=== PATIENT | male | born 1990 | race Caucasian/White ===

== ENCOUNTER 2020-02-28 08:30 | Day surgery (SDC) | payer SELFPAY ==
[2020-02-28] MEDS ORDERED: MORPHINE 4 MG/ML SYR ONE (09:59)
[2020-02-28] MEDS ORDERED: ONDANSETRON 4 MG/2 ML VIAL ONE ×2 (09:59→12:54)
[2020-02-28] MEDS ORDERED: NA CHLORIDE 0.9% 1,000 ML ONE (09:59)
[2020-02-28 10:09] LABS: Absolute Lymphocytes (CBC) 1.4 K/uL (0.7-4.9); Basophils % 0.2 % (0-1.3); Hematocrit 48.2 % (39.6-49.0); Lymphocytes % 7.4 % (15.3-44.8); MPV 9.9 fL (7.6-11.3); RBC Red Blood Cell Count 5.51 M/uL (4.33-5.43)
[2020-02-28 10:16] LABS: ALT/SGPT 38 U/L (12-78); AST/SGOT 19 U/L (15-37); Albumin 4.2 g/dL (3.4-5.0); Alkaline Phosphatase 135 U/L (45-117); BUN Blood Urea Nitrogen 10 mg/dL (7-18); Bicarbonate 26 mmol/L (21-32); Bilirubin Direct < 0.1 mg/dL (0-0.2); Bilirubin Total 0.5 mg/dL (0.2-1.0); Glucose Level 91 mg/dL (74-106); Lipase 55 U/L (73-393); Potassium 3.7 mmol/L (3.5-5.1); Protein, Total 8.1 g/dL (6.4-8.2); Sodium Level 140 mmol/L (136-145)
[2020-02-28 10:35] LABS: Urine Blood NEGATIVE (NEG); Urine Glucose NEGATIVE (NEG); Urine Protein TRACE (NEG); Urine pH 8.5 (5.0-7.0)
[2020-02-28 10:51] LABS: Blood Morphology Comment NOT SEEN (NOT SEEN); Platelet Estimate ADEQ; Urine White Blood Cell Casts OK
--- NOTE | 2020-02-28 10:58 | RAD REPORT ---
EXAM DESCRIPTION: CTAbdomen Pelvis W Contrast - 02/28/2020 10:29 am CLINICAL HISTORY: Abdominal pain. ABD PAIN COMPARISON: No comparisons TECHNIQUE: Biphasic CT imaging of the abdomen and pelvis was performed with 100 ml non-ionic IV cont rast. All CT scans are performed using dose optimization technique as appropriate and may include automated exposure control or mA/KV adjustment according to patient size. FINDINGS: The lung bases are clear. The liver, spleen, pancreas, adrenal glands and kidneys are within normal limits. 26 mm cyst is prese nt superior left kidney. No bowel obstruction, free air, free fluid or abscess. The appendix is dilated to 14 mm and mildly i nflamed compatible with acute appendicitis. No evidence of significant lymphadenopathy. No suspicious bony findings. IMPRESSION: Acute appendicitis.
--- NOTE | 2020-02-28 11:14 | ER ---
Nurse's Notes [facility] Name: Lincoln Falcon Age: 29 yrs Sex: Male : 1990 Arrival Date: 02/28/2020 Time: 08:34 Bed 5 Private MD: Diagnosis: Acute appendicitis;Acute appendicitis with generalized peritonitis Presentation: 02/27 08:41 Chief complaint: Patient states: abd cramping and nausea that began yesterday. ll1 Coronavirus screen: Proceed with normal triage. Patient denies a cough. Patient denies shortness of breath or difficulty breathing. Patient denies measured and/or subjective temperature greater than 100.4F prior to today's visit. Patient denies travel on a cruise ship or to a country the [facility] currently lists as an affected area. Patient denies contact with known and/or suspected case of COVID-19. Ebola Screen: Patient denies exposure to infectious person. Patient denies travel to an Ebola-affected area in the 21 days before illness onset. Initial Sepsis Screen: Does the patient meet any 2 criteria? No. Patient's initial sepsis screen is negative. Does the patient have a suspected source of infection? No. Patient's initial sepsis screen is negative. Risk Assessment: Do you want to hurt yourself or someone else? Patient reports no desire to harm self or others. Onset of symptoms was February 27, 2020. 08:41 Method Of Arrival: Ambulatory [facility] 08:41 Acuity: SHAUNA 3 ll1 Historical: - Allergies: 08:42 No Known Allergies; ll1 - Home Meds: 08:42 None [Active]; ll1 - PMHx: 08:42 None; ll1 - PSHx: 08:42 None; ll1 - Immunization history:: Adult Immunizations up to date. - Social history:: Smoking status: Patient denies any tobacco usage or history of. Screenin:10 Abuse screen: Denies threats or abuse. Nutritional screening: No deficits noted. em Tuberculosis screening: No symptoms or risk factors identified. Fall Risk None identified. Assessment: 09:09 General: Appears in no apparent distress. comfortable, Behavior is calm, cooperative, em appropriate for age, Denies fever. Pain: Complains of pain in abdomen Pain currently is 7 out of 10 on a pain scale. Quality of pain is described as crampy, Pain began 1 day ago. Neuro: Level of Consciousness is awake, alert, obeys commands, Oriented to person, place, time, situation, Appropriate for age. Cardiovascular: Capillary refill < 3 seconds Patient's skin is warm and dry. Respiratory: Airway is patent Respiratory effort is even, unlabored, Respiratory pattern is regular, symmetrical. GI: Abdomen is round non-distended, Bowel sounds present X 4 quads. Abd is soft and non tender X 4 quads. Reports nausea, Patient currently denies diarrhea, vomiting. : Urine is clear. Derm: Skin is intact, is healthy with good turgor, Skin is pink, warm \T\ dry. Musculoskeletal: Capillary refill < 3 seconds, Range of motion: intact in all extremities. 11:15 Reassessment: Dr. Villegas at bedside assessing pt and updating POC. jl7 Vital Signs: 08:41 BP 127 / 84; Pulse 75; Resp 15; Temp 99.0(TE); Pulse Ox 98% on R/A; Weight 86.18 kg; ll1 Height 5 ft. 7 in. (170.18 cm); Pain 7/10; 09:55 BP 126 / 78; Pulse 66; Resp 22; Pulse Ox 100% on R/A; Pain 6/10; em 11:38 BP 130 / 93; Pulse 63; Resp 19; Pulse Ox 100% ; jl7 08:41 Body Mass Index 29.76 (86.18 kg, 170.18 cm) ll1 ED Course: 08:34 Patient arrived in ED. ag5 08:42 Triage completed. ll1 08:42 Arm band placed on right wrist. ll1 09:01 Connor Hernandez MD is Attending Physician. kdr 09:03 Carrillo Gracia, ALVINO is Primary Nurse. em 09:14 Patient has correct armband on for positive identification. Placed in gown. Bed in low em position. Call light in reach. Side rails up X2. Pulse ox on. NIBP on. 09:14 Urine collected: clean catch specimen, clear. em 09:45 Initial lab(s) drawn, by me, sent to lab. Inserted saline lock: 20 gauge in right em antecubital area, using aseptic technique. Blood collected. 10:29 CT Abd/Pelvis - IV Contrast Only In Process Unspecified. EDMS 11:13 Aubrey Canchola MD is Hospitalizing Provider. kdr 11:15 No provider procedures requiring assistance completed. Patient admitted, IV remains in jl7 place. intact, No redness/swelling at site. Administered Medications: 09:55 Drug: Zofran (Ondansetron) 4 mg Route: IVP; Site: right antecubital; em 10:15 Follow up: Response: No adverse reaction jl7 09:57 Drug: NS 0.9% 1000 ml Route: IV; Rate: 1 bolus; Site: right antecubital; em 11:32 Follow up: Response: No adverse reaction; IV Status: Completed infusion; IV Intake: jl7 1000ml 09:57 Drug: morphine 4 mg Route: IVP; Site: right antecubital; em 10:15 Follow up: Response: No adverse reaction; Pain is decreased jl7 11:28 Drug: Zosyn 3.375 grams Route: IVPB; Infused Over: 60 mins; Site: right antecubital; jl7 11:37 Follow up: Response: No adverse reaction; IV Status: Infusion continued upon admission jl7 11:32 Drug: NS 0.9% 1000 ml Route: IV; Rate: 125 ml/hr; Site: right antecubital; jl7 11:38 Follow up: Response: No adverse reaction; IV Status: Infusion continued upon admission jl7 Intake: 11:32 IV: 1000ml; Total: 1000ml. jl7 Outcome: 11:13 Decision to Hospitalize by Provider. kdr 11:54 Admitted to OR accompanied by nurse, via wheelchair, with chart. jl7 11:54 Condition: stable 11:54 Discharge instructions given to patient, Instructed on the need for admit, Demonstrated understanding of instructions. 11:54 Patient left the ED. jl7 Signatures: Dispatcher [employer] EDNH Connor Hernandez MD MD kdr Munoz, Edgar RN RN em Myiram Mojica RN RN jl7 Jono Roberts Roberto Galvin RN RN ll1
--- NOTE | 2020-02-28 11:14 | EDPHYS ---
Physician Documentation [facility] Name: Lincoln Falcon Age: 29 yrs Sex: Male : 1990 Arrival Date: 02/28/2020 Time: 08:34 Bed 5 Private MD: ED Physician Connro Hernandez HPI: 02/27 09:40 This 29 yrs old Male presents to ER via Ambulatory with complaints of kdr Abdominal Pain, Nausea. 09:40 The patient presents to the emergency department with nausea, that is mild, vomiting, kdr that is intermittent, diarrhea, abdominal pain, of the epigastric area, umbilical area and suprapubic area. Onset: The symptoms/episode began/occurred gradually, yesterday. Possible causes: unknown. The symptoms are aggravated by pressure, The symptoms are alleviated by nothing. Associated signs and symptoms: Pertinent positives: anorexia, diarrhea, nausea, vomiting. Severity of symptoms: At their worst the symptoms were mild in the emergency department the symptoms are unchanged. The patient has not experienced similar symptoms in the past. The patient has not recently seen a physician. Historical: - Allergies: 08:42 No Known Allergies; ll1 - Home Meds: 08:42 None [Active]; ll1 - PMHx: 08:42 None; ll1 - PSHx: 08:42 None; ll1 - Immunization history:: Adult Immunizations up to date. - Social history:: Smoking status: Patient denies any tobacco usage or history of. ROS: 09:40 Constitutional: Negative for fever, chills, and weight loss, Eyes: Negative for injury, kdr pain, redness, and discharge, ENT: Negative for injury, pain, and discharge, Neck: Negative for injury, pain, and swelling, Cardiovascular: Negative for chest pain, palpitations, and edema, Respiratory: Negative for shortness of breath, cough, wheezing, and pleuritic chest pain, Back: Negative for injury and pain, : Negative for injury, bleeding, discharge, and swelling, MS/Extremity: Negative for injury and deformity, Skin: Negative for injury, rash, and discoloration, Neuro: Negative for headache, weakness, numbness, tingling, and seizure activity. Psych: Negative for depression, anxiety, suicide ideation, homicidal ideation, and hallucinations, Allergy/Immunology: Negative for hives, rash, and allergies, Endocrine: Negative for neck swelling, polydipsia, polyuria, polyphagia, and marked weight changes, Hematologic/Lymphatic: Negative for swollen nodes, abnormal bleeding, and unusual bruising. 09:40 Abdomen/GI: Positive for abdominal pain, nausea, vomiting, and diarrhea, of the epigastric area, umbilical area and suprapubic area, Negative for abdominal distension, black/tarry stool, rectal pain, rectal bleeding, bowel incontinence. Exam: 09:40 Constitutional: This is a well developed, well nourished patient who is awake, alert, kdr and in no acute distress. Head/Face: Normocephalic, atraumatic. Eyes: Pupils equal round and reactive to light, extra-ocular motions intact. Lids and lashes normal. Conjunctiva and sclera are non-icteric and not injected. Cornea within normal limits. Periorbital areas with no swelling, redness, or edema. Neck: Trachea midline, no thyromegaly or masses palpated, and no cervical lymphadenopathy. Supple, full range of motion without nuchal rigidity, or vertebral point tenderness. No Meningismus. Chest/axilla: Normal chest wall appearance and motion. Nontender with no deformity. No lesions are appreciated. Cardiovascular: Regular rate and rhythm with a normal S1 and S2. No gallops, murmurs, or rubs. Normal PMI, no JVD. No pulse deficits. Respiratory: Lungs have equal breath sounds bilaterally, clear to auscultation and percussion. No rales, rhonchi or wheezes noted. No increased work of breathing, no retractions or nasal flaring. Back: No spinal tenderness. No costovertebral tenderness. Full range of motion. Skin: Warm, dry with normal turgor. Normal color with no rashes, no lesions, and no evidence of cellulitis. MS/ Extremity: Pulses equal, no cyanosis. Neurovascular intact. Full, normal range of motion. Neuro: Awake and alert, GCS 15, oriented to person, place, time, and situation. Cranial nerves II-XII grossly intact. Motor strength 5/5 in all extremities. Sensory grossly intact. Cerebellar exam normal. Normal gait. Psych: Awake, alert, with orientation to person, place and time. Behavior, mood, and affect are within normal limits. 09:40 Abdomen/GI: Inspection: bruising, Bowel sounds: active, diminished, in all quadrants, Palpation: soft, moderate abdominal tenderness, in all quadrants, rebound tenderness, is appreciated in the right lower quadrant, Very slight rebound. Vital Signs: 08:41 BP 127 / 84; Pulse 75; Resp 15; Temp 99.0(TE); Pulse Ox 98% on R/A; Weight 86.18 kg; ll1 Height 5 ft. 7 in. (170.18 cm); Pain 7/10; 09:55 BP 126 / 78; Pulse 66; Resp 22; Pulse Ox 100% on R/A; Pain 6/10; em 11:38 BP 130 / 93; Pulse 63; Resp 19; Pulse Ox 100% ; jl7 08:41 Body Mass Index 29.76 (86.18 kg, 170.18 cm) ll1 MDM: 09:40 Data reviewed: vital signs, nurses notes, lab test result(s), radiologic studies. kdr Counseling: I had a detailed discussion with the patient and/or guardian regarding: the historical points, exam findings, and any diagnostic results supporting the discharge/admit diagnosis, lab results, radiology results. 11:13 Patient medically screened. [facility] 02/27 09:14 Order name: Urine Dipstick--Ancillary (enter results); Complete Time: 10:47 em1 02/27 09:37 Order name: Basic Metabolic Panel; Complete Time: 10:47 kdr 02/27 09:37 Order name: CBC with Diff kdr 02/27 09:37 Order name: Hepatic Function; Complete Time: 10:47 kdr 02/27 09:37 Order name: Lipase; Complete Time: 10:47 kdr 02/27 10:26 Order name: CREATININE WHOLE BLOOD; Complete Time: 10:47 EDSC 02/27 09:37 Order name: IV Saline Lock; Complete Time: 09:59 kdr 02/27 09:37 Order name: CT Abd/Pelvis - IV Contrast Only; Complete Time: 11:09 kdr 02/27 10:52 Order name: CBC Smear Scan; Complete Time: 11:09 EDSC 02/27 09:37 Order name: Labs collected and sent; Complete Time: 09:59 kdr Administered Medications: 09:55 Drug: Zofran (Ondansetron) 4 mg Route: IVP; Site: right antecubital; em 10:15 Follow up: Response: No adverse reaction jl7 09:57 Drug: NS 0.9% 1000 ml Route: IV; Rate: 1 bolus; Site: right antecubital; em 11:32 Follow up: Response: No adverse reaction; IV Status: Completed infusion; IV Intake: jl7 1000ml 09:57 Drug: morphine 4 mg Route: IVP; Site: right antecubital; em 10:15 Follow up: Response: No adverse reaction; Pain is decreased jl7 11:28 Drug: Zosyn 3.375 grams Route: IVPB; Infused Over: 60 mins; Site: right antecubital; jl7 11:37 Follow up: Response: No adverse reaction; IV Status: Infusion continued upon admission jl7 11:32 Drug: NS 0.9% 1000 ml Route: IV; Rate: 125 ml/hr; Site: right antecubital; jl7 11:38 Follow up: Response: No adverse reaction; IV Status: Infusion continued upon admission jl7 Disposition: 02/28/20 11:13 Hospitalization ordered by Aubrey Canchola for Observation. Preliminary diagnosis are Acute appendicitis, Acute appendicitis with generalized peritonitis. - Bed requested for Operating Room. - Status is Observation. jl7 - Condition is Fair. - Problem is new. - Symptoms have improved. Signatures: Dispatcher [employer] EDSandra Gil RN RN dm5 Connor Hernandez MD MD kdr Carrillo Gracia RN RN em Leal, Jahala, RN RN jl7 Roberto Trotter, ALVINO RN ll1 Corrections: (The following items were deleted from the chart) 11:46 11:13 Hospitalization Ordered by Aubrey Canchola MD for Observation. Preliminary diagnosis dm5 is Acute appendicitis; Acute appendicitis with generalized peritonitis. Bed requested for Telemetry/MedSurg (observation). Status is Observation. Condition is Fair. Problem is new. Symptoms have improved. kdr 11:54 11:46 02/28/2020 11:13 Hospitalization Ordered by Aubrey Canchola MD for Observation. jl7 Preliminary diagnosis is Acute appendicitis; Acute appendicitis with generalized peritonitis. Bed requested for Operating Room. Status is Observation. Condition is Fair. Problem is new. Symptoms have improved. dm5
[2020-02-28] MEDS ORDERED: PIPER/TAZO/NS 3.375gm 3.375 GM/100 ML BAG ONE (11:25)
[2020-02-28] MEDS ORDERED: FENTANYL CITR 100 MCG/2 ML ONE (11:53)
[2020-02-28] MEDS ORDERED: LIDOCAINE 1% MPF 5 ML VIAL ONE (11:53)
[2020-02-28] MEDS ORDERED: propofoL 200 MG/20 ML VIAL IV ONE (11:53)
[2020-02-28] MEDS ORDERED: MIDAZOLAM HCL 2 MG/2 ML INJ ONE (11:53)
[2020-02-28] MEDS ORDERED: ROCURONIUM 50 MG/5 ML VIAL IV ONE (11:53)
[2020-02-28] MEDS ORDERED: BUPIVACA 0.25%/EPI 0.0005%/PF 30 ML VIAL ONE (11:53)
[2020-02-28] MEDS ORDERED: SUCCINYLCHOLINE 20 MG/ML (10 ML) IV ONE (12:02)
[2020-02-28] MEDS ORDERED: KETOROLAC 30 MG/ML INJ ONE (12:52)
[2020-02-28] MEDS ORDERED: GLYCOPYRROLATE 0.2 MG/ML SYR ONE ×2 (12:52→13:09)
[2020-02-28] MEDS ORDERED: dexAMETHasone 10 MG/ML VIAL ONE (12:52)
[2020-02-28] MEDS ORDERED: NEOSTIGMINE 1 MG/ML -5 ML ONE (12:54)
--- NOTE | 2020-02-28 13:02 | P.OP ---
Preoperative diagnosis: Acute Non-Perforated Appendicitis Postoperative diagnosis: Acute Non-Perforated Appendicitis Primary procedure: Laparoscopic Appendectomy Anesthesia: GETA + Local Estimated blood loss: <10cc Specimen: Vermiform Appendix Findings: Acute Non-Perforated Appendicitis Complications: None Transferred to: Recovery Room Condition: Good
[2020-02-28] MEDS ORDERED: MEPERIDINE HCL 25 MG/ML SYR ONE (13:23)
[2020-02-28] MEDS: HYDROMORPHONE HCL 1 MG/ML INJ ONE ×3 (13:45→14:00)
[2020-02-28] MEDS ORDERED: PROMETHAZINE INJ 25 MG/ML AMP ONE (13:49)
[2020-02-28] MEDS ORDERED: HYDROCODONE/APAP 5/325 MG TAB ONE (14:46)
[2020-02-28 15:30] VITALS: TEMP 98.6; O2SAT 100
[2020-02-28 15:31] VITALS: BP 102/78
--- NOTE | 2020-02-28 21:49 | HP ---
Date of Admission: 02/28/2020 Brief History Of Present Illness: Patient is a 29-year-old male who presents to the hospit nj with a 1-day history of periumbilical and epigastric abdominal pain, now radiating to the right lo wer quadrant. He states that he has never had pain before like this. He had no new food exposures. No recent travel. No sick contacts and no COVID exposures to his knowledge. His pain is currently significant in the right lower quadrant, sharp, stabbing, constant without significant improvement. There is no other aggravating or alleviating factors other than pressure movement and palpation of th e right lower quadrant. Past Medical History: Negative. Past Surgical History: Negative. Allergies: NO KNOWN DRUG ALLERGIES. Medications: None. Social History: He denies smoking, alcohol, or recreational drug use. 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 Review of Systems: 10-point review of systems other than HPI, denies. Physical Examination: General: At the time of my examination, he is awake, alert, oriented. Psychiatric: Appropriate, conversive. HEENT: Normocephalic, sclerae icteric. Mucous membranes are moist. Oropharynx clear. Neck: Supple. No JVD. Chest: Normal expansion and excursion. Cardiovascular: Regular rate and rhythm. Pulmonary: Clear to auscultation bilaterally. Abdomen: Soft with positive right lower quadrant focal peritonitis, positive rebound, positive guard ing at McBurney point. Pelvis: Stable. Extremities: No clubbing, cyanosis, edema. Skin: Warm, dry. Laboratory Data: Reveals a white blood count of 18.6, hemoglobin of 16.0, hematocrit 48.2, platelet count is 211, neutrophils 87%. His chemistry shows a sodium 140, potassium 3.7, chloride 106, carbon dioxide 26, BUN 10, creatinine 0.98, glucose is 91. Total bilirubin 0.5, direct bilirubin is less t hair 0.1, AST 19, ALT 38, alkaline phosphatase is 135, lipase is 55. UA shows negative other than 1+ ketones. He has CT scan performed the abdomen and pelvis, officially read as acute appendicitis spec ifically, the appendix dilated 14 mm, mildly inflamed, compatible with acute appendicitis. No signif icant lymphadenopathy. Assessment/plan: 29-year-old male who comes in with signs and symptoms of acute appendicitis. 1.IV fluid hydration. 2.Antibiotic coverage. 3.I explained risks, benefits, and alternatives of laparoscopic possible open appendectomy including but not limited to bleeding, infection, damage to the surrounding tissue, need further operation and procedure. Patient agrees proceed as indicated. CHRIS/GEMMA Voice ID: [id number]
--- NOTE | 2020-02-28 23:19 | OP ---
Date of Procedure: 02/28/2020 Surgeon: Aubrey Canchola MD, Postoperative Diagnosis: Acute nonperforated appendicitis. Postoperative Diagnosis: Acute nonperforated appendicitis. Procedure Performed: Laparoscopic appendectomy. Anesthesia: General endotracheal plus local 0.25% Marcaine with epinephrine. Estimated Fluid Loss: Less than 10 cc. Specimen: Vermiform appendix. Findings: Acute nonperforated appendicitis. Complications: None. Disposition: Transferred to recovery room in good condition. Procedure In Detail: After informed was obtained, patient was brought to the operating room, prepped and draped in the usual sterile fashion after adequate anesthesia was achieved, an infraumbilical ar ea was anesthetized with 0.25% Marcaine, sharply incised. A 5 mm trocar was then introduced into the abdomen without evidence of complication. Insufflation was obtained to 15 mmHg at this time. There was no injury to vital structures upon entry to the abdomen. Two additional trocars were chosen, on e in the right lower quadrant, one in the suprapubic to the left of midline. Both of these were roque larly anesthetized, sharply incised, and a 5 mm trocar was introduced in the abdomen without evidence of complication direct visualization. The umbilical trocar was then up-sized to a 12 mm under direc t visualization without evidence of complication. The patient was positioned head down, right side u p position. Ratcheted grasper was used to grasp the patient's appendix, elevated, and a mesoappendic eal window was created with the [place] retractor. Endo CHRISTOPHER 35 blue load fired across the base of t he appendix with good approximation of tissues. The LigaSure device was then used to take the mesoap pendix down without evidence of complication. The area was copiously irrigated and suctioned out unt il completely clear. At this point, there was no leakage from the staple line and there was no bleed ing or hemostatic maneuvers required. The appendix was then removed from the umbilical trocar after being placed in an EndoCatch bag and sent off for pathologic examination. The area was copiously irr igated once again multiple times and multiple positions of the patient. No hemostatic measures requi red. The pelvis was irrigated as well and suctioned out dry. Patient positioned back in neutral pos ition. Remaining effluent was suctioned out. The umbilical trocar was removed. The umbilical troca r site was closed using a Andres-Therese suture passer with a 0 Vicryl in an interrupted fashion wit h good approximation of tissues. The abdomen was completely desufflated under direct visualization w ithout evidence of complication. All trocars were removed. All skin incisions copiously irrigated a nd closed with interrupted diandra and sterile dressing placed over top. Patient tolerated the proce dure well without evidence of complications and transferred to PACU in good condition. All counts we re correct at the end of the case. CHRIS/GEMMA Voice ID: [id number] Report ID: [id number]
== END 2020-02-28 15:20 | disposition home or self-care (01) ==
LOC: ER 08:30 → OR 11:00
PROVIDERS: ATTEND Surgery
PROC: 0DTJ4ZZ Resection of Appendix, Percutaneous Endoscopic Approach (ICD-10-PCS; principal; 2020-02-28 12:15)
DX: K35.80 Unspecified acute appendicitis (principal)
CPT/HCPCS: 36415; 74177; 80048; 80076; 81003; 82565; 83690; 85025; 88304; 96361; 96374; 96375; 99285; J0330; J1100; J1170; J2175; J2250; J2405; J2543; J2550; J2704; J2710; J3010; J7030; Q9967